=== PATIENT | female | born 1970 | race Caucasian/White ===

== ENCOUNTER → 2017-09-19 | Outpatient (CLI) | payer OTHER ==
[~2017-09-19] MED LIST: BENICAR20 MG; CLONIDINE0.1 PO; COZAAR 25 MG TA25 MG; NORCO 5-325 TA1 EACH PO; SYNTHROID100 MCG
== END ==
LOC: M.RAD 15:58
DX: M19.071 Primary osteoarthritis, right ankle and foot (principal); M19.072 Primary osteoarthritis, left ankle and foot

== ENCOUNTER → 2019-03-26 | Outpatient (CLI) | payer OTHER | LOC: M.ULTRA 09:01 | DX: K76.0 Fatty (change of) liver, not elsewhere classified (principal); R16.2 Hepatomegaly with splenomegaly, not elsewhere classified ==

== ENCOUNTER → 2020-01-18 | Outpatient (CLI) | payer OTHER | LOC: M.ULTRA 11:15 | DX: M79.604 Pain in right leg (principal) ==